=== PATIENT | female | born 1995 | race Asian ===

== ENCOUNTER 2020-04-11 03:08 | Emergency (ER) | payer BC ==
[~2020-04-11] VITALS: Ht 167.6 cm; Wt 49.4 kg
[2020-04-11 04:08] VITALS: BP 124/83
== END 2020-04-11 04:08 | disposition home or self-care (01) ==
LOC: ED 03:08
DX: S61.012A Laceration without foreign body of left thumb without damage to nail, initial encounter (principal); W26.0XXA Contact with knife, initial encounter; Y93.89 Activity, other specified; Y92.89 Other specified places as the place of occurrence of the external cause; Y99.8 Other external cause status
CPT/HCPCS: J2001